=== PATIENT | female | born 1985 | race Two or more races ===

== ENCOUNTER 2021-11-30 12:07 | Outpatient (CLI) | payer OTHER ==
[~2021-11-30 12:07] MED LIST: ALTARUSSIN100 MG/5 M PO; CEFADROXIL500 MG PO
== END 2021-11-30 13:45 | disposition home or self-care (01) ==
LOC: PRENATAL 12:07
PROVIDERS: ATTEND Obstetrics & Gynecology Maternal & Fetal Medicine
DX: Z03.79 Encounter for other suspected maternal and fetal conditions ruled out (principal)

== ENCOUNTER 2021-12-17 08:05 | Outpatient (CLI) | payer OTHER | END 2021-12-17 09:55 | disposition home or self-care (01) | LOC: PRENATAL 08:05 | PROVIDERS: ATTEND Obstetrics & Gynecology Maternal & Fetal Medicine | DX: O36.80X0 Pregnancy with inconclusive fetal viability, not applicable or unspecified (principal); Z36.0 Encounter for antenatal screening for chromosomal anomalies; Z3A.14 14 weeks gestation of pregnancy ==

== ENCOUNTER 2022-01-28 10:40 | Outpatient (CLI) | payer OTHER | END 2022-01-28 12:40 | disposition home or self-care (01) | LOC: PRENATAL 10:40 | PROVIDERS: ATTEND Obstetrics & Gynecology Maternal & Fetal Medicine | DX: O35.0XX0 Maternal care for (suspected) central nervous system malformation in fetus, not applicable or unspecified (principal); O35.3XX0 Maternal care for (suspected) damage to fetus from viral disease in mother, not applicable or unspecified; Z3A.20 20 weeks gestation of pregnancy ==

== ENCOUNTER 2022-04-01 13:02 | Inpatient (IN) | payer OTHER ==
[~2022-04-01] VITALS: Ht 154.9 cm; Wt 83.5 kg
== END 2022-04-08 10:56 | disposition home or self-care (01) | DRG 833 ==
LOC: OBS/DEL 13:02 → LDR 04-02 10:51 → OB/GYN 04-03 12:10
PROVIDERS: ADMIT Obstetrics & Gynecology; ATTEND Obstetrics & Gynecology
PROC: BY4FZZZ Ultrasonography of Third Trimester, Single Fetus (ICD-10-PCS; 2022-04-01)
PROC: BU4CZZZ Ultrasonography of Uterus and Ovaries (ICD-10-PCS; 2022-04-01)
PROC: 4A1HXCZ Monitoring of Products of Conception, Cardiac Rate, External Approach (ICD-10-PCS; principal; 2022-04-02)
DX: O47.03 False labor before 37 completed weeks of gestation, third trimester (principal); Z3A.29 29 weeks gestation of pregnancy; Z20.822 Contact with and (suspected) exposure to COVID-19

== ENCOUNTER 2022-04-27 04:22 | Outpatient (CLI) | payer OTHER | END 2022-04-27 11:09 | disposition home or self-care (01) | LOC: OBS/DEL 04:22 → LDR 04:40 → OBS/DEL 11:09 | PROVIDERS: ATTEND Obstetrics & Gynecology | DX: O23.43 Unspecified infection of urinary tract in pregnancy, third trimester (principal); N39.0 Urinary tract infection, site not specified; Z3A.33 33 weeks gestation of pregnancy; R10.2 Pelvic and perineal pain; E16.2 Hypoglycemia, unspecified ==

== ENCOUNTER 2022-04-28 14:27 | Outpatient (CLI) | payer OTHER | END 2022-04-28 15:54 | disposition home or self-care (01) | LOC: PRENATAL 14:27 | PROVIDERS: ATTEND Obstetrics & Gynecology Maternal & Fetal Medicine | DX: O26.849 Uterine size-date discrepancy, unspecified trimester (principal); O36.8199 Decreased fetal movements, unspecified trimester, other fetus; Z3A.33 33 weeks gestation of pregnancy ==

== ENCOUNTER 2022-05-30 13:15 | Inpatient (IN) | payer OTHER ==
[~2022-05-30] VITALS: Ht 154.9 cm; Wt 3.6 kg
[2022-06-08] MEDS ORDERED: PRENATAL TABLE1 EAC1 PO (07:31)
== END 2022-06-11 16:01 | disposition home or self-care (01) | DRG 788 ==
LOC: OB/GYN 06-08 05:58 → O/R 06-08 05:58 → OB/GYN 06-08 09:54 → LDR 06-14 13:15
PROVIDERS: ADMIT Obstetrics & Gynecology; ATTEND Obstetrics & Gynecology
PROC: 0UB90ZZ Excision of Uterus, Open Approach (ICD-10-PCS; 2022-06-08)
PROC: 4A1HXCZ Monitoring of Products of Conception, Cardiac Rate, External Approach (ICD-10-PCS; 2022-06-08)
PROC: 10D00Z1 Extraction of Products of Conception, Low, Open Approach (ICD-10-PCS; principal; 2022-06-08 07:00)
DX: O82 Encounter for cesarean delivery without indication (principal); O34.13 Maternal care for benign tumor of corpus uteri, third trimester; D25.9 Leiomyoma of uterus, unspecified; Z3A.39 39 weeks gestation of pregnancy; Z37.0 Single live birth; Z20.822 Contact with and (suspected) exposure to COVID-19